=== PATIENT | female | born 1960 | race Caucasian/White ===

== ENCOUNTER 2016-09-07 22:29 | Emergency (ER) | payer BC ==
[~2016-09-07] VITALS: Ht 160 cm; Wt 64.0 kg
[2016-09-07 23:03] LABS: MEAN CELL VOLUME 71 fl (80.0-100.0); MEAN CORPUSCULAR HGB CONC 27 g/dl (33.0-37.0); PLATELET COUNT 188 K/mm3 (130-400); RED BLOOD COUNT 3.36 M/mm3 (4.10-5.30)
[2016-09-07 23:07] LABS: HEMATOCRIT 23.8 % (37.0-47.0); HEMOGLOBIN 6.4 g/dl (12.5-16.0); MEAN CORPUSCULAR HEMOGLOBIN 19 pg (27.0-31.0); WHITE BLOOD COUNT 53.8 K/mm3 (4.8-10.8)
[2016-09-07 23:08] LABS: ADD PATHOLOGY DIFF REVIEW NO
[2016-09-07 23:09] LABS: INR 2.1 (0.8-3.0); PROTHROMBIN TIME 23.4 SECONDS (9.7-12.8)
[2016-09-07 23:11] LABS: PARTIAL THROMBOPLASTIN TIME 37.7 SECONDS (26.0-37.0)
[2016-09-07 23:14] LABS: ALLEN TEST YES; ALLENS TEST RESULT PASS; ARTERIAL BLD GAS O2 SATURATION 98.3 % (92-100); ARTERIAL BLOOD GAS BASE EXCESS -3.8 (-2-2); ARTERIAL BLOOD GAS HCO3 19.2 meq/L (22-26); ARTERIAL BLOOD GAS PHT 7.48 C (7.35-7.45); ARTERIAL BLOOD GAS pH 7.48 (7.35-7.45); ATS? YES; OXYHEMOGLOBIN 95.7 %
[2016-09-07 23:21] LABS: ADJUSTED CALCIUM 8.7 mg/dL (8.4-10.2); ALBUMIN 2.5 gm/dL (3.5-5.0); BILIRUBIN,TOTAL 1.5 mg/dL (0.0-1.0); CALCIUM 7.5 mg/dL (8.4-10.2); CREATININE, serum 2.04 mg/dL (0.52-1.25); TOTAL PROTEIN 6.1 gm/dL (6.4-8.2)
[2016-09-07 23:24] LABS: POTASSIUM 3.7 mmol/L (3.4-5.0)
[2016-09-08 00:15] VITALS: BP 114/57; PULSE 87; TEMP 96.7
[2016-09-08 00:48] LABS: BAND 22 % (0-10); HYPOCHROMIA 3+; METAMYELOCYTE 1 % (0-0); MYELOCYTE 1 % (0-0); NEUTROPHILS 70 % (42.0-75.2); TOTAL CELLS COUNTED 102
[2016-09-08 00:52] LABS: PLATELET ESTIMATE NORMAL (NORMAL)
[2016-09-08 00:53] LABS: ANISOCYTOSIS 2+
[2016-09-08 00:55] LABS: MICROCYTOSIS 2+
[2016-09-24] MEDS ORDERED: ASPIRIN 32325 MG/TAB PO (13:07)
[2016-09-24] MEDS ORDERED: LIPITOR20 MG PO (13:07)
[2016-09-24] MEDS ORDERED: INVANZ INJ1 G/VIAL IV (13:08)
[2016-09-24] MEDS ORDERED: KEPPRA 500MG500 MG PO (13:10)
[2016-11-17] MEDS ORDERED: LIPITOR20 MG PO (08:19)
[2016-11-17] MEDS ORDERED: AMOXICILLIN 25250 MG PO (08:19)
[2016-11-17] MEDS ORDERED: KEPPRA 500MG500 MG PO (08:20)
== END 2016-09-08 01:00 | disposition short-term general hospital (02) ==
LOC: COL.ER 22:29
PROVIDERS: Emergency Medicine
DX: A41.9 Sepsis, unspecified organism (principal); J18.9 Pneumonia, unspecified organism; D64.9 Anemia, unspecified; K92.2 Gastrointestinal hemorrhage, unspecified
CPT/HCPCS: J1265; J2543; J7030; J7050; P9016

== ENCOUNTER → 2016-10-01 | Outpatient (CLI) | payer BC ==
[~2016-10-01] VITALS: Ht 160 cm; Wt 59.3 kg
[~2016-10-01] MED LIST: AMOXICILLIN 25250 MG PO; ASPIRIN 32325 MG/TAB PO; INVANZ INJ1 G/VIAL IV; KEPPRA 500MG500 MG PO; LIPITOR20 MG PO
[2016-10-01 13:18] VITALS: BP 113/78; PULSE 76
== END ==
LOC: COL.RAD 12:52
DX: J90 Pleural effusion, not elsewhere classified (principal); Z87.01 Personal history of pneumonia (recurrent); Z79.82 Long term (current) use of aspirin; Z79.899 Other long term (current) drug therapy

== ENCOUNTER → 2018-11-11 | Outpatient (CLI) | payer BC | LOC: COL.RAD 09:46 | DX: C18.7 Malignant neoplasm of sigmoid colon (principal); C78.7 Secondary malignant neoplasm of liver and intrahepatic bile duct; R91.8 Other nonspecific abnormal finding of lung field; R16.1 Splenomegaly, not elsewhere classified; K63.89 Other specified diseases of intestine; D50.9 Iron deficiency anemia, unspecified; D70.1 Agranulocytosis secondary to cancer chemotherapy; Z95.828 Presence of other vascular implants and grafts | CPT/HCPCS: Q9967 ==

== ENCOUNTER → 2019-02-03 | Outpatient (CLI) | payer BC | LOC: COL.RAD 08:09 | DX: C18.7 Malignant neoplasm of sigmoid colon (principal); C78.7 Secondary malignant neoplasm of liver and intrahepatic bile duct; R91.8 Other nonspecific abnormal finding of lung field; R16.1 Splenomegaly, not elsewhere classified | CPT/HCPCS: Q9967 ==